=== PATIENT | male | born 1990 | race Caucasian/White ===

== ENCOUNTER 2021-12-22 18:02 | Emergency (ER) | payer MEDICAID ==
[2021-12-22 18:28] VITALS: BP 150/90
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
[2021-12-22 18:50] LABS: BASOPHILS % (AUTO) 0.4 %; EOSINOPHILS # (AUTO) 0.2 10^3/uL (0.0-0.7); EOSINOPHILS % (AUTO) 4.7 %; HCT - HEMATOCRIT 40.2 % (42.0-52.0); HGB - HEMOGLOBIN 13.9 g/dL (14.0-18.0); LYMPHOCYTES # (AUTO) 2.3 10^3/uL (1.5-3.5); LYMPHOCYTES % (AUTO) 43.9 %; MEAN CORPUSCULAR HEMOGLOBIN 31.7 pg (27.0-31.0); MEAN CORPUSCULAR HGB CONC 34.6 g/dL (32.0-36.0); MEAN CORPUSCULAR VOLUME 91.6 fL (80.0-94.0); MEAN PLATELET VOLUME 9.4 fL (7.4-11.4); MONOCYTES # (AUTO) 0.5 10^3/uL (0.0-1.0); MONOCYTES % (AUTO) 8.8 %; NEUTROPHILS # (AUTO) 2.2 10^3/uL (1.5-6.6); PLT - PLATELET COUNT 288 10^3/uL (130-450); RED BLOOD COUNT 4.39 10^6/uL (4.70-6.10); RED CELL DISTRIBUTION WIDTH 12.3 % (12.0-15.0); WHITE BLOOD COUNT 5.1 x10^3/uL (4.8-10.8)
[2021-12-22 19:12] LABS: CALCIUM 8.8 mg/dL (8.5-10.3); CREATININE 0.9 mg/dL (0.6-1.2); CRP - C-REACTIVE PROTEIN 2.5 mg/dL (0-1.0); POTASSIUM 4.1 mmol/L (3.5-5.0)
--- NOTE | 2021-12-22 19:37 | XRAY Report ---
PROCEDURE: Hand 3 View RT INDICATIONS: infection 2nd/3rd digits TECHNIQUE: 3 of the hand(s) acquired. COMPARISON: None FINDINGS: Bones: No fractures or dislocations. The stanley of the second and third distal phalanges are absent. Erosive changes noted in the distal aspect of the residual second distal phalange suspicious for oste omyelitis. Tiny air locules noted in the distal aspect of the amputated second digit. Soft tissues: No suspicious soft tissue calcifications. IMPRESSION: Findings suspicious for osteomyelitis involving the distal aspect residual second distal phalange. Tiny air locules in the distal aspect of the amputated second digit concerning for infectious celluli tis. Reviewed by: Kirsten Taylor MD, PhD on 12/22/2021 7:35 PM PST Approved by: Kirsten Taylor MD, PhD on 12/22/2021 7:35 PM PST Station ID: [id number]
[2021-12-22] MEDS ORDERED: SULFAMETH/TRIMETH DS 800/160 MG TABLET PO STA (20:13)
[2021-12-22] MEDS ORDERED: CEPHALEXIN 250 MG Prepack 8 CAP BOTTLE PO STA (20:13)
== END 2021-12-22 21:36 | disposition home or self-care (01) ==
LOC: ED 18:02
DX: Z02.2 Encounter for examination for admission to residential institution (principal); M86.441 Chronic osteomyelitis with draining sinus, right hand
CPT/HCPCS: 36415; 73130; 80048; 85025; 85651; 86140; 87070; 87205; 99284; A9270